=== PATIENT | female | born 1935 | race Hispanic/Latino ===

== ENCOUNTER 2017-10-19 16:02 | Inpatient (IN) | payer MEDICARE, OTHER ==
[2017-10-19] MEDS ORDERED: Piperacillin/Tazobact 3.375 gm 100 ML IVPB STA (16:25)
[2017-10-19] MEDS ORDERED: Vancomycin 1gm in NS 250ml 1 GM/250 ML BAG IVPB STA (16:26)
--- NOTE | 2017-10-19 16:41 | ED PDOC ---
Arrival/HPI - General Chief Complaint: Lower Extremity Problem/Injury Time Seen by Provider: 10/19/17 16:09 Historian: Patient - History of Present Illness Narrative History of Present Illness (Text): 10/19/17 16:37 A 82 year old female, whose past medical history includes hypertension and hyperlipidemia, sent into the emergency department by PMD for bilateral leg ulcers. Patient reports she has been taking Clindamycin with no improvement. PMD requests to start patient on IV antibiotics. Patient denies any pain, fever , chills or any other complaints. Past Medical History - Provider Review Nursing Documentation Reviewed: Yes - Infectious Disease Hx of Infectious Diseases: None - Tetanus Immunization Tetanus Immunization: Unknown - Reproductive Menopause: Yes - Cardiac Hx Cardiac Disorders: Yes - Pulmonary Hx Respiratory Disorders: No - Neurological Hx Neurological Disorder: Yes Hx Dizziness: Yes - HEENT Hx HEENT Disorder: Yes (WEARS RX GLASSES) Hx Macular Degeneration: Yes - Renal Hx Renal Disorder: No - Endocrine/Metabolic Hx Endocrine Disorders: No - Hematological/Oncological Hx Blood Disorders: No - Integumentary Hx Dermatological Disorder: No - Musculoskeletal/Rheumatological Hx Arthritis: Yes - Gastrointestinal Hx Gastrointestinal Disorders: Yes (COLOSTOMY WITH REVERSAL) - Genitourinary/Gynecological Hx Genitourinary Disorders: No (RIGHT LUMPECTOMY) - Psychiatric Hx Psychophysiologic Disorder: Yes (SMOKED CIGARETTES P A WEEK. QUIT) Hx Anxiety: Yes Hx Bipolar Disorder: No Hx Depression: No Hx Emotional Abuse: No Hx Hallucinations: No Hx Panic Disorder: No Hx Post Traumatic Stress Disorder: No Hx Psychosis: No Hx Physical Abuse: No Hx Schizophrenia: No Hx Sexual Abuse: No Hx Substance Use: No - Surgical History Hx Cholecystectomy: Yes Other/Comment: right lumpectomy, colostomy with reversal. - Anesthesia Hx Anesthesia: Yes Hx Anesthesia Reactions: No Hx Malignant Hyperthermia: No - Suicidal Assessment Feels Threatened In Home Enviroment: No Family/Social History - Physician Review Nursing Documentation Reviewed: Yes Family/Social History: No Known Family HX Smoking Status: Former Smoker Hx Alcohol Use: No Hx Substance Use: No Hx Substance Use Treatment: No Allergies/Home Meds Allergies/Adverse Reactions: Allergies Sulfa (Sulfonamide Antibiotics) Allergy (Verified 10/19/17 21:31) NAUSEA Home Medications: Home Meds Medication Instructions Recorded Confirmed Atorvastatin [Lipitor] 80 mg PO DAILY 03/20/12 10/19/17 Cholecalciferol [Vitamin D 1000 IU] 1,000 iu PO DAILY 01/07/15 10/19/17 Multivitamin/Iron/Folic Acid 1 tab PO DAILY 01/07/15 10/19/17 [Centrum] Alprazolam [Xanax] 0.5 mg PO DAILY 10/19/17 10/19/17 Calcium Citrate/Vitamin D3 1 each PO DAILY 10/19/17 10/19/17 [Calcium Citrate - Vit D3 Tab] Ibandronate Sodium [Boniva] 150 mg PO DAILY 10/19/17 10/19/17 Blair-3 Fatty Acids/Fish Oil [Fish 1,000 mg PO DAILY 10/19/17 10/19/17 Oil 1,000 mg Capsule] Review of Systems - Physician Review All systems were reviewed & negative as marked: Yes - Review of Systems Constitutional: absent: Fevers, Night Sweats Skin: Ulcer (bilateral leg ulcers) Physical Exam Vital Signs Temp Pulse Resp BP Pulse Ox 10/19/17 19:12 79 18 162/99 H 93 L 10/19/17 16:02 97.7 F 68 19 141/72 96 Appearance: Positive for: Well-Appearing, Non-Toxic, Comfortable Pain Distress: None Mental Status: Positive for: Alert and Oriented X 3 - Systems Exam Head: Present: Atraumatic, Normocephalic Pupils: Present: PERRL Extroacular Muscles: Present: EOMI Conjunctiva: Present: Normal Lower Extremity: Present: NORMAL PULSES, Other (Left greater than right leg ulcers, 2-3 cm in size with purulent drainage and black eschar). No: Edema, CALF TENDERNESS Neurological: Present: GCS=15, CN II-XII Intact, Speech Normal Skin: Present: Warm, Dry, Normal Color. No: Rashes Psychiatric: Present: Alert, Oriented x 3, Normal Insight, Normal Concentration Medical Decision Making ED Course and Treatment: 10/19/17 16:37 Impression: A 82 year old female with bilateral leg ulcers Plan: -- Duplex lower extremity ultrasound -- Left and Right Tibia fibula xrays -- Labs -- Blood culture -- Vancomycin and Zosyn -- Reassess and disposition Progress Notes: - Lab Interpretations Lab Results: 10/19/17 18:15 10/19/17 18:15 Lab Results 10/19/17 18:15: Sodium 138, Potassium 4.1, Chloride 101, Carbon Dioxide 30, Anion Gap 12, BUN 24 H, Creatinine 1.3 H, Est GFR ( Amer) 48, Est GFR ( Non-Af Amer) 39, Random Glucose 86, Calcium 10.1, Total Bilirubin 0.9, AST 29, ALT 39, Alkaline Phosphatase 75, Total Protein 7.6, Albumin 4.4, Globulin 3.2, Albumin/Globulin Ratio 1.4 10/19/17 18:15: PT 11.0, INR 1.01, APTT 31.7 10/19/17 18:15: WBC 9.3 D, RBC 4.90, Hgb 14.7, Hct 43.7, MCV 89.2, MCH 30.0, MCHC 33.6, RDW 15.0 H, Plt Count 274, MPV 11.9 H, Gran % 51.1, Lymph % (Auto) 36.7 H, Bay % (Auto) 8.7 H, Eos % (Auto) 2.6, Baso % (Auto) 0.9, Gran # 4.73, Lymph # 3.4, Bay # 0.8 H, Eos # 0.2, Baso # 0.08, ESR 15 I have reviewed the lab results: Yes - RAD Interpretation Radiology Orders: 10/19/17 16:25 TIBIA FIBULA BI [RAD] Stat DUPLEX LOWER EXTRM VEIN BILAT [US] Stat - Medication Orders Current Medication Orders: Acetaminophen (Tylenol 325mg Tab) 650 mg PO Q6H PRN PRN Reason: Fever >100.4 F Alprazolam (Xanax) 0.5 mg PO DAILY PRN PRN Reason: Anxiety Atorvastatin Calcium (Lipitor) 80 mg PO DIN ANA MARÍA Hydrochlorothiazide (Hydrodiuril) 25 mg PO DAILY ANA MARÍA Last Admin: 10/20/17 15:12 Dose: 25 mg Ceftaroline Fosamil 400 mg/ (Sodium Chloride) 100 mls @ 100 mls/hr IVPB Q12 ANA MARÍA PRN Reason: Protocol Stop: 10/29/17 10:01 Last Admin: 10/20/17 10:24 Dose: 100 mls/hr eMAR Start Stop Document 10/20/17 10:24 MV (Rec: 10/20/17 10:24 MV [id number]) Intravenous Solution Start Date 10/20/17 Start Time 10:24 End Date 10/20/17 End time 11:24 Total Infusion Time 60 Mupirocin (Bactroban Ointment) 0 gm TOP DAILY ANA MARÍA Tramadol HCl (Ultram) 50 mg PO QID PRN PRN Reason: Pain, Mild (1-3) Last Admin: 10/20/17 05:34 Dose: 50 mg [facility] Pain Assessment Document 10/20/17 05:34 LIBRADO (Rec: 10/20/17 05:35 LIBRADO [id number]) Pain Reassessment Is this a pain reassessment? Yes Sleep Is patient sleeping during reassessment? No Presence of Pain Presence of Pain Yes Pain Scale Used Pain Scale Used Numeric Location Left, Right or Bilateral Left Pain Location Body Site Leg Description Description Intermittent Intensity of Pain at present 7 Pain Behavior Facial Grimacing Aggravating Factors None Alleviating Factors/Management Medication Techniques Alleviating Factors Medication Re-Assess: [facility] Pain Assessment Document 10/20/17 06:34 LIBRADO (Rec: 10/20/17 06:37 LIBRADO [facility]-[id number]) Pain Reassessment Is this a pain reassessment? Yes Sleep Is patient sleeping during reassessment? No Presence of Pain Presence of Pain No Pain Scale Used Pain Scale Used Numeric Discontinued Medications Piperacillin Sod/Tazobactam Sod (Zosyn 3.375 In Ns 100ml) 100 mls @ 200 mls/hr IVPB STAT STA PRN Reason: Protocol Stop: 10/19/17 16:54 Last Admin: 10/19/17 18:00 Dose: 200 mls/hr eMAR Start Stop Document 10/19/17 18:00 SRE (Rec: 10/19/17 18:36 SRE [id number]) Intravenous Solution Start Date 10/19/17 Start Time 18:00 End Date 10/19/17 End time 19:00 Total Infusion Time 60 Vancomycin HCl (Vancomycin 1gm) 1 gm in 250 mls @ 167 mls/hr IVPB STAT STA PRN Reason: Protocol Stop: 10/19/17 17:55 Last Admin: 10/19/17 19:10 Dose: 167 mls/hr eMAR Start Stop Document 10/19/17 19:10 SRE (Rec: 10/19/17 19:11 SRE [id number]) Intravenous Solution Start Date 10/19/17 Start Time 19:11 End Date 10/19/17 End time 20:45 Total Infusion Time 94 Vancomycin HCl (Vancomycin 1gm) 1 gm in 250 mls @ 167 mls/hr IVPB Q12H ANA MARÍA PRN Reason: Protocol Last Admin: 10/19/17 20:15 Dose: Piperacillin Sod/Tazobactam Sod (Zosyn 3.375 In Ns 100ml) 100 mls @ 200 mls/hr IVPB Q8 ANA MARÍA PRN Reason: Protocol Stop: 10/20/17 14:01 Last Admin: 10/20/17 05:31 Dose: 200 mls/hr eMAR Start Stop Document 10/20/17 05:31 LIBRADO (Rec: 10/20/17 05:32 LIBRADO [id number]) Intravenous Solution Start Date 10/20/17 Start Time 05:31 End Date 10/20/17 End time 06:01 Total Infusion Time 30 Pneumococcal Polyvalent Vaccine (Pneumovax 23 Vaccine) 0.5 ml IM .ONCE ONE Stop: 10/19/17 23:38 Tramadol HCl (Ultram) 50 mg PO QID COUNT INCLUDES THE [facility] - Scribe Statement The provider has reviewed the documentation as recorded by the Aniket Sandoval Provider Scribe Attestation: All medical record entries made by the Estuardoiblawrence were at my direction and personally dictated by me. I have reviewed the chart and agree that the record accurately reflects my personal performance of the history, physical exam, medical decision making, and the department course for this patient. I have also personally directed, reviewed, and agree with the discharge instructions and disposition. Disposition/Present on Arrival - Present on Arrival Any Indicators Present on Arrival: No History of DVT/PE: No History of Uncontrolled Diabetes: No Urinary Catheter: No History of Decub. Ulcer: No History Surgical Site Infection Following: None - Disposition Have Diagnosis and Disposition been Completed?: Yes Diagnosis: Infected stasis ulcer of left lower extremity, Leg ulcer, Cellulitis Disposition: HOSPITALIZED Disposition Time: 06:00 Patient Problems: Current Active Problems Problem Status Onset Cellulitis Acute Infected stasis ulcer of left lower extremity Acute Leg ulcer Acute Condition: STABLE
--- NOTE | 2017-10-19 18:38 | US ---
HISTORY: Leg pain and swelling. Evaluate for DVT PHYSICIAN(S): Jeovanny Bo MD. TECHNIQUE: Duplex sonography and color-flow Doppler with graded compression were used to evaluate the deep venous systems of both lower extremities. FINDINGS: The visualized deep venous systems of both lower extremities are sonographically normal and compressible. Normal wave forms and augmentation are seen. There is no sonographic evidence for deep venous thrombosis in the visualized segments of both lower extremities. IMPRESSION: No sonographic evidence for deep venous thrombosis in the visualized segments of both lower extremities.
[2017-10-19 18:41] LABS: BASO # 0.08 K/mm3 (0.0-2.0); BASO % 0.9 % (0.0-3.0); EOS # 0.2 (0.0-0.7); EOS % 2.6 % (1.5-5.0); GRAN # 4.73 (1.4-6.5); GRAN % 51.1 % (50.0-68.0); HEMATOCRIT 43.7 % (36.0-48.0); LYMPH # 3.4 (1.2-3.4); LYMPH % 36.7 % (22.0-35.0); MEAN CELL VOLUME 89.2 fl (80.0-105.0); MEAN CORPUSCULAR HGB CONC 33.6 g/dl (31.0-37.0); MEAN PLATELET VOLUME 11.9 fl (7.0-11.0); MONO # 0.8 (0.1-0.6); MONO % 8.7 % (1.0-6.0); WHITE BLOOD COUNT 9.3 10^3/ul (4.5-11.0)
[2017-10-19 18:48] LABS: INR 1.01 (0.93-1.08); PARTIAL THROMBOPLASTIN TIME 31.7 Seconds (25.1-36.5)
[2017-10-19 18:53] LABS: ALB/GLOB RATIO 1.4 (1.1-1.8); BILIRUBIN,TOTAL 0.9 mg/dL (0.2-1.3); CALCIUM 10.1 mg/dL (8.4-10.5); POTASSIUM 4.1 mmol/L (3.6-5.0); TOTAL PROTEIN 7.6 g/dL (5.8-8.3)
[2017-10-19] MEDS ORDERED: Vancomycin 1gm in NS 250ml 1 GM/250 ML BAG IVPB SCH (20:00)
[2017-10-19] MEDS: Piperacillin/Tazobact 3.375 gm 100 ML IVPB SCH (22:01)
[2017-10-19 23:37] VITALS: BMI 22.7
[2017-10-19] MEDS ORDERED: Pneumococcal 23-Valent Vaccine IM ONE (23:37)
[2017-10-19] MEDS ORDERED: Influenza Vaccine 60 mcg/0.5 mL SYR (4YR UP) IM ONE (23:37)
[2017-10-20] MEDS: Piperacillin/Tazobact 3.375 gm 100 ML IVPB SCH (05:31)
--- NOTE | 2017-10-20 08:02 | RAD ---
PROCEDURE: Radiographs of the bilateral Tibiae and Fibulae. HISTORY: leg ulcer COMPARISON: None available. TECHNIQUE: Frontal and lateral views obtained. FINDINGS: BONES: RIGHT TIBIA: No fracture or destructive lesion. LEFT TIBIA: No fracture or destructive lesion. JOINT SPACES: RIGHT TIBIA: Normal. LEFT TIBIA: Normal. SOFT TISSUES: RIGHT TIBIA: Normal. LEFT TIBIA: Normal. OTHER FINDINGS: None. IMPRESSION: Unremarkable radiographs of the bilateral tibia and fibula.
--- NOTE | 2017-10-20 08:39 | HP ---
HISTORY OF PRESENT ILLNESS: The patient is an 82-year-old. The patient of Dr. Starkey who was seen by her today. She was seen a week ago. She has bilateral leg ulcer. She was given clindamycin. She states she went for followup, but there was no significant improvement, so she advised her to go to emergency room to have IV antibiotic given. No history of fever or chills. No history of nausea or vomiting. No history of diarrhea. No shortness of breath. No cough or congestion. PAST MEDICAL HISTORY: Significant for: 1. Hypertension. 2. Hyperlipidemia. 3. History of bilateral knee osteoarthritis. 4. Anxiety disorder. 5. History of macular degeneration. PAST SURGICAL HISTORY: Significant for: 1. Right breast lumpectomy. 2. Cholecystectomy. 3. History of colostomy who had reversal of colostomy done. ALLERGIES: SHE IS ALLERGIC TO SULFA MEDICATION THAT GIVES HER NAUSEA. SOCIAL HISTORY: She lives by herself. Denies smoking or drinking. She used to smoke earlier, but quit couple of years ago. MEDICATIONS AT HOME: She is on: 1. Tramadol 50 mg 4 times daily p.r.n. 2. Lipitor 80 mg daily. 3. Xanax 0.5 daily. 4. Multivitamins. 5. Centrum Silver. 6. Boniva. 7. Fish oil. 8. Vitamin D. REVIEW OF SYSTEMS: Significant for bilateral leg ulcer. PHYSICAL EXAMINATION: GENERAL: She is awake, alert, oriented, and communicative. VITAL SIGNS: She is afebrile, pulse 68, respirations 19, and blood pressure 141/72, and pulse ox 96%. HEENT: She has symmetrical face. Nonicteric sclerae. Pale conjunctivae. LUNGS: Bilateral good airflow. No rhonchi or crackle. HEART: S1 and S2 audible. No murmur. ABDOMEN: Soft and nontender. No rebound. No guarding. NEUROLOGIC: She is awake, alert, oriented, and able to communicate. EXTREMITIES: Bilateral leg ulcer present, which has slight erythema around. ASSESSMENT: 1. Bilateral leg ulcer, failed outpatient treatment. 2. Hypertension. 3. Hyperlipidemia. 4. Peripheral vascular disease. PLAN: We will start the patient on vancomycin and Zosyn. Followup CBC and CMP in a.m. ID consult by Dr. Calzada will be requested and will have local wound care by Dr. Pena. Radha Hendrickson MD
--- NOTE | 2017-10-20 12:04 | US ---
PROCEDURE: Lower extremity CORA exam HISTORY: Peripheral vascular disease with pain and ulceration. Smoker PHYSICIAN(S): Jeovanny Bo MD. FINDINGS: The resting CORA's are normal: right, 1.04and left, 0.99. The high thigh PVR waveforms are normal and symmetric The calf PVR waveforms augment normally. No significant gradients are noted across the thighs. The ankle and metatarsal waveforms are relatively normal and symmetric. There may be mild bilateral tibial disease IMPRESSION: 1. Normal ABIs at rest 2. Possible mild bilateral tibial disease
--- NOTE | 2017-10-20 17:08 | CP.PCM.CON ---
<Vinh Choi - Last Filed: 10/20/17 17:02> History of Present Illness - History of Present Illness History of Present Illness: Podiatry Consult Note - Dr. Pena 82 year old female patient seen and evaluated at bedside for bilateral leg wounds secondary to trauma. Patient hemodynamically stable and NAD. Patient states she developed the wound on her left leg from pulling down her compression hose, and developed the right wound after she hit her leg against furniture. Patient reports mild tenderness to the left leg wound; denies pain to right lower extremity. Patient states she was given medication from her PMD for the wounds but still have not improved, so was sent to [facility] ED. Patient denies N/V/F/D/C/SOB/calf pain. No other pedal complaints. PMHx: HTN, HLD, bilateral knee OA, anxiety, macular degeneration PSH: breast lumpectomy R, cholecystectomy, colostomy w/reversal FH: noncontributory to CC SH: former tobacco use, denies ETOH/illicit drug use All: sulfa Review of Systems - Review of Systems All systems: reviewed and no additional remarkable complaints except (as per HPI ) Past Patient History - Infectious Disease Hx of Infectious Diseases: None - Tetanus Immunizations Tetanus Immunization: Unknown - Past Social History Smoking Status: Former Smoker - CARDIAC Hx Cardiac Disorders: Yes Hx Hypercholesterolemia: Yes Hx Hypertension: Yes - PULMONARY Hx Respiratory Disorders: No - NEUROLOGICAL Hx Neurological Disorder: Yes Hx Dizziness: Yes - HEENT Hx HEENT Problems: Yes (WEARS RX GLASSES) Hx Macular Degeneration: Yes - RENAL Hx Chronic Kidney Disease: No - ENDOCRINE/METABOLIC Hx Endocrine Disorders: No - HEMATOLOGICAL/ONCOLOGICAL Hx Blood Disorders: No - INTEGUMENTARY Hx Dermatological Problems: No - MUSCULOSKELETAL/RHEUMATOLOGICAL Hx Arthritis: Yes - GASTROINTESTINAL Hx Gastrointestinal Disorders: Yes (COLOSTOMY WITH REVERSAL) - GENITOURINARY/GYNECOLOGICAL Hx Genitourinary Disorders: No (RIGHT LUMPECTOMY) - PSYCHIATRIC Hx Psychophysiologic Disorder: Yes (SMOKED CIGARETTES P A WEEK. QUIT) Hx Anxiety: Yes Hx Bipolar Disorder: No Hx Depression: No Hx Emotional Abuse: No Hx Hallucinations: No Hx Panic Symptoms: No Hx Post Traumatic Stress Disorder: No Hx Psychosis: No Hx Physical Abuse: No Hx Schizophrenia: No Hx Sexual Abuse: No Hx Substance Use: No - SURGICAL HISTORY Hx Cholecystectomy: Yes Other/Comment: right lumpectomy, colostomy with reversal. - ANESTHESIA Hx Anesthesia: Yes Hx Anesthesia Reactions: No Hx Malignant Hyperthermia: No Meds Allergies/Adverse Reactions: Allergies Allergy/AdvReac Type Severity Reaction Status Date / Time Sulfa (Sulfonamide Allergy NAUSEA Verified 10/23/17 22:37 Antibiotics) - Medications Medications: Current Medications Acetaminophen (Tylenol 325mg Tab) 650 mg PO Q6H PRN PRN Reason: Fever >100.4 F Alprazolam (Xanax) 0.5 mg PO DAILY PRN PRN Reason: Anxiety Atorvastatin Calcium (Lipitor) 80 mg PO DIN ANA MARÍA Hydrochlorothiazide (Hydrodiuril) 25 mg PO DAILY ANA MARÍA Last Admin: 10/20/17 15:12 Dose: 25 mg Ceftaroline Fosamil 400 mg/ (Sodium Chloride) 100 mls @ 100 mls/hr IVPB Q12 ANA MARÍA PRN Reason: Protocol Stop: 10/29/17 10:01 Last Admin: 10/20/17 10:24 Dose: 100 mls/hr Tramadol HCl (Ultram) 50 mg PO QID PRN PRN Reason: Pain, Mild (1-3) Last Admin: 10/20/17 05:34 Dose: 50 mg Physical Exam - Constitutional Appears: Well, Non-toxic, No Acute Distress - Extremities Exam Additional comments: VASC: DP and PT pulses weakly palpable 1/4 b/l. CFT <3 seconds to all digits x10. Temperature gradient cool to cool. Perimalleolar edema noted. No increase in warmth noted to ulcers b/l. Varicosities noted. NEURO: Gross sensation intact bilaterally. DERM: Ulcerations noted to anterior aspect of leg bilateral; erythema noted periwound, L>R; dried blood noted periwound; sanguinous drainage noted; absent purulence/fluctuance/malodor/calor. ORTHO: Tenderness to palpation noted to left leg ulceration. - Neurological Exam Neurological exam: Alert, Oriented x3 - Psychiatric Exam Psychiatric exam: Normal Affect, Normal Mood Results - Vital Signs Recent Vital Signs: Last Vital Signs Temp 97.6 F 10/20/17 06:00 Pulse 71 10/20/17 06:00 Resp 18 10/20/17 06:00 BP 124/69 10/20/17 06:00 Pulse Ox 99 10/19/17 20:37 - Labs Result Diagrams: 10/19/17 18:15 12/13/17 18:15 Labs: Laboratory Results - last 24 hr 10/20/17 10/20/17 08:35 08:35 ESR 22 H C-React Prot High Sens 1.58 Assessment & Plan - Assessment and Plan (Free Text) Assessment: 82 year old female with 1) non-healing leg ulcerations b/l secondary to trauma, 2) cellulitis left leg Plan: Patient seen and evaluated with attending, Dr. Pena afebrile, WBC 9.3 yesterday, ESR 22 today Ulcerations cleansed with normal saline and dressed with telfa, DSD -Peroxide and bactroban for dressing change tomorrow Continue abx - recs appreciated Pain mgmt per medicine Podiatry will continue to follow patient while in house <Maryellen Pena - Last Filed: 10/25/17 10:38> Results - Vital Signs Recent Vital Signs: Last Vital Signs Temp 98.2 F 10/23/17 08:07 Pulse 74 10/23/17 08:07 Resp 20 10/23/17 08:07 BP 118/54 L 10/23/17 09:54 Pulse Ox 98 10/23/17 08:07 - Labs Result Diagrams: 10/21/17 05:30 10/21/17 05:30 Attending/Attestation - Attestation I have personally seen and examined this patient.: Yes I have fully participated in the care of the patient.: Yes I have reviewed all pertinent clinical information: Yes
--- NOTE | 2017-10-20 18:31 | PN ---
DATE: SUBJECTIVE: The patient is 82-years old, seen and examined, lying in bed, seems to be comfortable, has bilateral leg dressing done. PHYSICAL EXAMINATION: GENERAL: She is awake and alert. VITAL SIGNS: She is afebrile, pulse is 71, respirations are 18, and blood pressure is 124/69. LUNGS: Bilateral good airflow. No rhonchi or crackles. HEART: S1 and S2 audible. ABDOMEN: Soft, nontender. No rebound. No guarding. NEUROLOGIC: She is awake, alert, oriented, and communicate. LABORATORY DATA: WBC is 9.3, hemoglobin is 14, hematocrit is 43, and platelets of 274. PT 11.0 and INR 1.01. Chemistries: Sodium of 138, potassium of 4.1, chloride of 101, CO2 of 30, BUN of 24, creatinine of 1.3, and blood sugar of 86. LFTs are within normal limits. Bilateral leg Doppler, normal ABIs and possible mild bilateral tibial disease. Bilateral venous Doppler negative for DVT. ASSESSMENT AND PLAN: 1. Bilateral leg cellulitis. 2. History of hypertension. 3. Chronic back pain. 4. History of osteoporosis. 5. Hyperlipidemia. PLAN: Currently, the patient is on Teflaro. Continue wound care. Out-of-bed to chair. The patient has failed outpatient treatment. I request for TCU evaluation to complete her course of antibiotic, and if she is accepted after 3 overnights, she will be transferred to TCU. Radha Hendrickson MD
--- NOTE | 2017-10-21 03:38 | CON ---
DATE: 10/20/2017 LOCATION: The patient is seen in room 368, bed 2. CHIEF COMPLAINT: Bilateral leg ulcers times several days. HISTORY OF PRESENT ILLNESS: This is an 82-year-old female with hypertension, hyperlipidemia, and arthritis who was admitted with diagnosis of infected leg ulcers and Infectious Disease consultation requested. REVIEW OF SYSTEMS: Revealed the patient had no fevers. No chills. No nausea or vomiting. No chest pain. No abdominal pain or diarrhea. PAST MEDICAL HISTORY: Hypertension, hyperlipidemia, and arthritis. PAST SURGICAL HISTORY: Reveals colostomy with reversal and cholecystectomy. ALLERGIES: THE PATIENT IS ALLERGIC TO SULFA. MEDICATIONS: Noted the patient to be on tramadol at home. The patient was also given a course of clindamycin for the treatment of lower extremity cellulitis and improving. SOCIAL HISTORY: The patient is a smoker. PHYSICAL EXAMINATION: GENERAL/VITAL SIGNS: The patient is seen in bed with a temperature of 97, heart rate of 88, respiratory rate of 18, and blood pressure of 140/80. HEENT: Unremarkable. NECK: Supple. LUNGS: Have decreased breath sounds. HEART: Normal S1 and S2. ABDOMEN: Soft and nontender. No organomegaly. No rebound. No guarding. EXTREMITIES: Examination of lower extremity reveals both legs have anterior aspect of her legs with ulcer and erythema around it. It appears actually trauma induced because they are both located in approximately the same location anteriorly in level dias in both legs and erythematous. LABORATORY DATA: Reveals a white count of 9.3, hemoglobin of 14, and platelets of 274. Chemistries reveal a BUN of 24 and creatinine of 1.3. The patient's creatinine in the past was 1.20. Microbiology is pending. The patient had an ultrasound of the extremity and arterial Dopplers, which showed possible mild bilateral tibial disease, normal Tomás at the bed. She had venous Dopplers, which shows negative DVT. ASSESSMENT AND PLAN: This is an 82-year-old female with hypertension, hyperlipidemia, and arthritis, who continues to be a smoker with bilateral lower extremity leg ulcers with cellulitis, probable trauma induced in phase of acute kidney injury mostly an underlying osteomyelitis. We will treat the patient with Teflaro and ordered a sed rate, which is now reported to be 22 and chemistries with C-reactive protein of 1.8, which is not elevated. We will check on the cultures. We will discontinue the vancomycin-induced Teflaro because of the renal impaired function and we are unable to use Zyvox because of the tramadol and will make further recommendations, pending culture results and response. Should have imaging to rule out underlying osteomyelitis. Carter Calzada MD
[2017-10-21 06:35] LABS: MEAN CELL VOLUME 87.8 fl (80.0-105.0); MEAN CORPUSCULAR HEMOGLOBIN 28.8 pg (25.0-35.0); MEAN CORPUSCULAR HGB CONC 32.8 g/dl (31.0-37.0); MEAN PLATELET VOLUME 11.9 fl (7.0-11.0); RED CELL DISTRIBUTION WIDTH 14.9 % (11.5-14.5); WHITE BLOOD COUNT 6.1 10^3/ul (4.5-11.0)
[2017-10-21 06:57] LABS: ALB/GLOB RATIO 1.3 (1.1-1.8); BILIRUBIN,TOTAL 0.7 mg/dL (0.2-1.3); CALCIUM 9.4 mg/dL (8.4-10.5); POTASSIUM 3.6 mmol/L (3.6-5.0); TOTAL PROTEIN 6.2 g/dL (5.8-8.3)
--- NOTE | 2017-10-21 14:29 | CP.PCM.PN ---
<Vinh Choi - Last Filed: 10/21/17 14:25> Subjective - Date & Time of Evaluation Date of Evaluation: 10/21/17 Time of Evaluation: 14:25 - Subjective Subjective: Podiatry Consult Note - Dr. Pena/Dylan 82 year old female patient seen and evaluated at bedside for bilateral leg wounds secondary to trauma. Patient hemodynamically stable and NAD. Denies any acute events overnight. Reports mild tenderness to left leg wound, well controlled. No other pedal complaints. Denies N/V/F/D/C/SOB/calf pain. Objective - Vital Signs/Intake and Output Vital Signs (last 24 hours): Temp Pulse Resp BP Pulse Ox 97.8 F 67 22 150/75 91 L 10/21/17 06:00 10/21/17 06:00 10/21/17 06:00 10/21/17 06:00 10/21/17 06:00 Intake and Output: 10/21/17 10/21/17 06:59 18:59 Intake Total 820 480 Balance 820 480 - Medications Medications: Current Medications Acetaminophen (Tylenol 325mg Tab) 650 mg PO Q6H PRN PRN Reason: Fever >100.4 F Alprazolam (Xanax) 0.5 mg PO DAILY PRN PRN Reason: Anxiety Last Admin: 10/21/17 11:10 Dose: 0.5 mg Atorvastatin Calcium (Lipitor) 80 mg PO DIN ANA MARÍA Hydrochlorothiazide (Hydrodiuril) 25 mg PO DAILY [facility] Last Admin: 10/21/17 09:45 Dose: 25 mg Ceftaroline Fosamil 400 mg/ (Sodium Chloride) 100 mls @ 100 mls/hr IVPB Q12 ANA MARÍA PRN Reason: Protocol Stop: 10/29/17 10:01 Last Admin: 10/21/17 09:42 Dose: 100 mls/hr Mupirocin (Bactroban Ointment) 0 gm TOP DAILY ANA [facility]A Last Admin: 10/21/17 09:45 Dose: Not Given Tramadol HCl (Ultram) 50 mg PO QID PRN PRN Reason: Pain, Mild (1-3) Last Admin: 10/20/17 05:34 Dose: 50 mg - Labs Labs: 10/21/17 05:30 10/21/17 05:30 PT 11.0 SECONDS (9.4-12.5) 10/19/17 18:15 INR 1.01 (0.93-1.08) 10/19/17 18:15 APTT 31.7 Seconds (25.1-36.5) 10/19/17 18:15 - Constitutional Appears: Well, Non-toxic, No Acute Distress - Extremities Exam Additional comments: VASC: DP and PT pulses weakly palpable 1/4 b/l. CFT <3 seconds to all digits x10. Temperature gradient cool to cool. No edema noted this visit. No increase in warmth noted to ulcers b/l. Varicosities noted. NEURO: Gross sensation intact bilaterally. DERM: Ulcerations noted to anterior aspect of leg bilateral - ulceration #1 to right leg measuring approximately 2 x 1.5 x 0.1 cm and ulceration #2 to left leg measuring approximately 4 x 2 x 0.1 cm; both ulcers are noted to have a 100 % granular base with epithelialization; erythema noted periwound, L>R; no drainage noted; absent purulence/fluctuance/malodor/calor. ORTHO: Mild tenderness to palpation noted to left leg ulceration. - Neurological Exam Neurological Exam: Alert, Awake, Oriented x3 - Psychiatric Exam Psychiatric exam: Anxious, Normal Mood Assessment and Plan - Assessment and Plan (Free Text) Assessment: 82 year old female with 1) traumatic leg ulcerations b/l, 2) cellulitis left leg Plan: Patient seen and evaluated Discussed with attending, Dr. Richardson afebrile, WBC 6.1, ESR 22 Ulcerations cleansed with hydrogen peroxide, bactroban applied to wound beds, and dressed with telfa, DSD -Continue with local wound care f/u wound culture Continue abx - Ceftaroline Pain mgmt per medicine Continue PT Advised patient to follow up in wound care center within 1 week of discharge Podiatry will continue to follow patient while in house <Ronald Richardson - Last Filed: 10/21/17 19:13> Objective - Vital Signs/Intake and Output Vital Signs (last 24 hours): Temp Pulse Resp BP Pulse Ox 99 F 72 20 158/74 H 94 L 10/21/17 16:00 10/21/17 16:00 10/21/17 16:00 10/21/17 16:00 10/21/17 16:00 Intake and Output: 10/21/17 10/22/17 18:59 06:59 Intake Total 480 Balance 480 - Medications Medications: Current Medications Acetaminophen (Tylenol 325mg Tab) 650 mg PO Q6H PRN PRN Reason: Fever >100.4 F Alprazolam (Xanax) 0.5 mg PO DAILY PRN PRN Reason: Anxiety Last Admin: 10/21/17 11:10 Dose: 0.5 mg Atorvastatin Calcium (Lipitor) 80 mg PO DIN [facility] Last Admin: 10/21/17 17:30 Dose: 80 mg Bacitracin (Bacitracin) 1 ea TOP BID PRN PRN Reason: Other Hydrochlorothiazide (Hydrodiuril) 25 mg PO DAILY [facility] [place] Last Admin: 10/21/17 09:45 Dose: 25 mg Ceftaroline Fosamil 400 mg/ (Sodium Chloride) 100 mls @ 100 mls/hr IVPB Q12 ANA MARÍA PRN Reason: Protocol Stop: 10/29/17 10:01 Last Admin: 10/21/17 09:42 Dose: 100 mls/hr Lisinopril (Zestril) 10 mg PO DAILY [facility] [place] Last Admin: 10/21/17 17:33 Dose: 10 mg Mupirocin (Bactroban Ointment) 0 gm TOP DAILY [facility] [place] Last Admin: 10/21/17 09:45 Dose: Not Given Tramadol HCl (Ultram) 50 mg PO QID PRN PRN Reason: Pain, Mild (1-3) Last Admin: 10/20/17 05:34 Dose: 50 mg - Labs Labs: 10/21/17 05:30 10/21/17 05:30 PT 11.0 SECONDS (9.4-12.5) 10/19/17 18:15 INR 1.01 (0.93-1.08) 10/19/17 18:15 APTT 31.7 Seconds (25.1-36.5) 10/19/17 18:15 Attending/Attestation - Attestation I have personally seen and examined this patient.: Yes I have fully participated in the care of the patient.: Yes I have reviewed all pertinent clinical information, including history, physical exam and plan: Yes
--- NOTE | 2017-10-21 14:49 | PN ---
DATE: 10/21/2017 SUBJECTIVE: The patient is in bed, in no acute distress. OBJECTIVE: VITAL SIGNS: On exam, temperature is 97, blood pressure is 150/70, respiratory rate of 16. HEENT: Examination of HEENT is unremarkable. NECK: Supple. LUNGS: Decreased breath sounds. HEART: Normal S1 and S2. ABDOMEN: Soft. LABORATORY EXAMINATION: Reveals a white count of 6.1, hemoglobin of 12, and a sed rate of 22. The chemistries reveal a BUN of 15, creatinine of 1.5. Microbiology is noted and blood cultures show no growth, and lower extremities have improved. ASSESSMENT AND PLAN: This is an 82-year-old female with hypertension, hyperlipidemia, arthritis, smoker, bilateral lower extremity leg ulcers, and cellulitis with acute kidney injury, currently on Teflaro. We will check on the culture results. Wound culture is pending. We will follow closely with you. Must rule out underlying osteomyelitis, should have imaging. Carter Calzada MD
--- NOTE | 2017-10-21 19:49 | PN ---
DATE: SUBJECTIVE: The patient is 82-year-old, seen and examined, doing well. Eating and tolerating. PHYSICAL EXAMINATION: VITAL SIGNS: She is afebrile, pulse 67, respirations 20, and blood pressure 84, was given Norvasc 10 mg now it is 150/75. GENERAL: She is awake, alert, oriented, and communicative. LUNGS: Bilateral good airflow. No rhonchi or crackles. HEART: S1 and S2 audible. ABDOMEN: Soft, nontender. No rebound. No guarding. NEUROLOGIC: She is awake, alert, oriented, communicative, and ambulatory. Bilateral españa, she has stage II ulcer with surrounding erythema. LABORATORY DATA: WBC 6.1, hemoglobin 12.8, hematocrit 39, and platelets of 217. Chemistry: Sodium of 135, potassium 3.6, chloride 104, CO2 of 28, BUN 15, creatinine 1.2, and blood sugar of 43. Her blood cultures are negative. Her wound cultures are pending. ASSESSMENT: 1. Bilateral españa ulcer with cellulitis. 2. Hypertension. 3. Hyperlipidemia. PLAN: We will start the patient on lisinopril. I will continue her on Teflaro. Local wound care being done by Dr. Pena. We will discontinue her telemetry. She is a good candidate for TCU for physical therapy, wound care, and IV antibiotics. Radha Hendrickson MD
[2017-10-21] MEDS: Bacitracin 500 Units/gm Oint Foilpak UD TOP PRN (22:37)
[2017-10-22] MEDS: Bacitracin 500 Units/gm Oint Foilpak UD TOP PRN (09:42)
--- NOTE | 2017-10-22 11:37 | CP.PCM.PN ---
<Sera Calvert - Last Filed: 10/22/17 11:34> Subjective - Date & Time of Evaluation Date of Evaluation: 10/22/17 Time of Evaluation: 10:10 - Subjective Subjective: Podiatry Progress Note- Dr. Richardson 82 year old female patient seen at bedside this morning for b/l anterior leg ulcerations. Pt does complain of mild tenderness to the wounds of both legs, denies any pain or discomfort to any other areas of both lower extremities. Denies f/n/v/c/sob/cp/weakness or dizziness, does complain of some loose stools since starting the IV antibiotics however. Offers no other complaints. Objective - Vital Signs/Intake and Output Vital Signs (last 24 hours): Temp Pulse Resp BP Pulse Ox 97.6 F 61 18 106/55 L 94 L 10/22/17 08:12 10/22/17 09:43 10/22/17 08:12 10/22/17 09:43 10/22/17 08:12 Intake and Output: 10/22/17 10/22/17 06:59 18:59 Intake Total 660 0 Balance 660 0 - Medications Medications: Current Medications Acetaminophen (Tylenol 325mg Tab) 650 mg PO Q6H PRN PRN Reason: Fever >100.4 F Alprazolam (Xanax) 0.5 mg PO DAILY PRN PRN Reason: Anxiety Last Admin: 10/21/17 11:10 Dose: 0.5 mg Atorvastatin Calcium (Lipitor) 80 mg PO DIN [facility] Last Admin: 10/21/17 17:30 Dose: 80 mg Bacitracin (Bacitracin) 1 ea TOP BID PRN PRN Reason: Other Last Admin: 10/22/17 09:42 Dose: 1 ea Hydrochlorothiazide (Hydrodiuril) 25 mg PO DAILY [facility] Last Admin: 10/22/17 09:43 Dose: 25 mg Lisinopril (Zestril) 10 mg PO DAILY [facility] Last Admin: 10/22/17 09:43 Dose: Not Given Mupirocin (Bactroban Ointment) 0 gm TOP DAILY [facility] Last Admin: 10/22/17 09:51 Dose: Not Given Tramadol HCl (Ultram) 50 mg PO QID PRN PRN Reason: Pain, Mild (1-3) Last Admin: 10/20/17 05:34 Dose: 50 mg - Labs Labs: 10/21/17 05:30 10/21/17 05:30 PT 11.0 SECONDS (9.4-12.5) 10/19/17 18:15 INR 1.01 (0.93-1.08) 10/19/17 18:15 APTT 31.7 Seconds (25.1-36.5) 10/19/17 18:15 - Constitutional Appears: Non-toxic, No Acute Distress - Extremities Exam Additional comments: Dressings to b/l LE appear c/d/i VASC: DP and PT pulses weakly palpable 1/4 b/l. CFT <3 seconds to all digits x10. Temperature gradient cool to cool. Perimalleolar edema noted. No increase in warmth noted to ulcers b/l. Varicosities noted. NEURO: Gross sensation intact bilaterally. DERM: Ulcerations noted to anterior aspect of leg bilateral; both wounds appear granular with no active drainage, absent purulence/fluctuance/malodor/calor. ORTHO: Tenderness to palpation noted to left leg ulceration. - Psychiatric Exam Psychiatric exam: Anxious, Normal Mood Assessment and Plan - Assessment and Plan (Free Text) Assessment: 82 year old female with 1) non-healing leg ulcerations b/l secondary to trauma, 2) cellulitis left leg Plan: Patient S&E at bedside Plan discussed with attending Dr. Richardson Chart, labs vitals reviewed: afebrile, no leukocytosis, ESR 22 LE wound cx's pending Ulcerations cleansed with normal saline, dressed with bactroban, telfa, DSD Antibiotics discontinued Pain mgmt per medicine Stable per podiatry Plan for pt to go to [facility] today, will follow <Ronald Richardson - Last Filed: 10/26/17 08:12> Objective - Vital Signs/Intake and Output Vital Signs (last 24 hours): Temp Pulse Resp BP Pulse Ox 98.2 F 74 20 118/54 L 98 10/23/17 08:07 10/23/17 08:07 10/23/17 08:07 10/23/17 09:54 10/23/17 08:07 - Labs Labs: 10/21/17 05:30 10/21/17 05:30 PT 11.0 SECONDS (9.4-12.5) 10/19/17 18:15 INR 1.01 (0.93-1.08) 10/19/17 18:15 APTT 31.7 Seconds (25.1-36.5) 10/19/17 18:15 Attending/Attestation - Attestation I have personally seen and examined this patient.: Yes I have fully participated in the care of the patient.: Yes I have reviewed all pertinent clinical information, including history, physical exam and plan: Yes
--- NOTE | 2017-10-23 00:55 | PN ---
DATE: SUBJECTIVE: The patent is an 82-year-old seem to be very confused and disoriented and worried. Offered no complaints except states I am worried that I am going to go home. Initially she was refusing to go to TCU, but when it was explained to her that she need wound care, physical therapy, she agreed. PHYSICAL EXAMINATION: GENERAL: She is awake, alert, oriented and communicative. VITAL SIGNS: She is afebrile, pulse 61, respirations 18 and blood pressure 106/55. LUNGS: Bilateral fair airflow. No rhonchi or crackle. HEART; S1 and S2 audible. ABDOMEN: Soft and nontender. No rebound. No guarding. NEUROLOGIC: She is awake, alert, oriented and forgetful. Bilateral leg españa. She has erythema with stage II ulcers. LABORATORY DATA: WBC 6.1, hemoglobin 12.8, hemoglobin 39 and platelet 217. Chemistry: Sodium 135, potassium 3.6, chloride 104, carbon dioxide 28, BUN 15, creatinine 1.2 and blood sugar of 87. Her blood cultures are negative. Her wound is growing Gram-negative rods, sensitivity to follow. ASSESSMENT AND PLAN: 1. Bilateral españa ulcers, failed outpatient treatment. Bilateral leg ulcer, we will start the patient on Rocephin, awaiting Transitional Care Unit transfer where she will get complete her course of antibiotics and get wound care and physical therapy. The patient is awaiting Transitional Care Unit transfer once the bed is available. She will be transferred to Transitional Care Unit. 2. Hypertension. 3. Dementia. 4. Mild renal insufficiency. Radha Hendrickson MD
--- NOTE | 2017-10-23 01:52 | PN ---
DATE: 10/22/2017 SUBJECTIVE: Patient in bed in no acute distress. Nontoxic. No fevers. No chills. No nausea. PHYSICAL EXAMINATION: GENERAL: Temperature is 97, blood pressure is 100/70, respiratory rate of 20, heart rate of 72. HEENT: Unremarkable. NECK: Supple. LUNGS: Have decreased breath sounds. HEART: Normal S1 and S2. ABDOMEN: Soft. LABORATORY DATA: Reveals a white count of 6.1, hemoglobin of 12, and platelets of 217. BUN of 15 and creatinine of 1.2. Microbiology reveals the leg culture is noted as gram-negative stephenie. MEDICATIONS: Revealed the patient to be on ceftriaxone. The patient was on ceftaroline. Dr. Hendrickson's note from yesterday is reviewed. Dr. Sera Calvert's note is reviewed. ASSESSMENT AND PLAN: This is an 82-year-old with bilateral españa ulcers and cellulitis, which have been greatly improved with gram-negative stephenie, hypertension, hyperlipidemia. We will check on the identification of gram-negative stephenie. The patient has refused ceftaroline, currently on ceftriaxone and we will review. Carter Calzada MD
[2017-10-23 08:07] VITALS: BP 118/54; PULSE 74; RESP 20; TEMP 98.2; O2SAT 98
[2017-10-23] MEDS ORDERED: cefTRIAXone 1 gm 1 GM/100 ML BAG IVPB SCH (10:00)
--- NOTE | 2017-10-23 11:04 | CP.PCM.PN ---
Subjective - Date & Time of Evaluation Date of Evaluation: 10/23/17 Time of Evaluation: 10:00 - Subjective Subjective: Podiatry Progress Note- Dr. Pena 82 year old female patient seen at bedside this morning for b/l anterior leg ulcerations. Pt is seen resting comfortably in bed at time of visit. Denies any acute overnight events. Denies any lucía pain to b/l lower extremities but does complain of some occasional tenderness to the left leg wound. Denies f/n/v/c/sob /cp/weakness or dizziness at this time. No other complaints at this time. Objective - Vital Signs/Intake and Output Vital Signs (last 24 hours): Temp Pulse Resp BP Pulse Ox 98.2 F 74 20 118/54 L 98 10/23/17 08:07 10/23/17 08:07 10/23/17 08:07 10/23/17 09:54 10/23/17 08:07 Intake and Output: 10/23/17 10/23/17 06:59 18:59 Intake Total 120 Balance 120 - Medications Medications: Current Medications Acetaminophen (Tylenol 325mg Tab) 650 mg PO Q6H PRN PRN Reason: Fever >100.4 F Alprazolam (Xanax) 0.5 mg PO DAILY PRN PRN Reason: Anxiety Last Admin: 10/22/17 11:51 Dose: 0.5 mg Atorvastatin Calcium (Lipitor) 80 mg PO DIN [facility] Last Admin: 10/22/17 17:02 Dose: 80 mg Bacitracin (Bacitracin) 1 ea TOP BID PRN PRN Reason: Other Last Admin: 10/22/17 09:42 Dose: 1 ea Hydrochlorothiazide (Hydrodiuril) 25 mg PO DAILY [facility] Last Admin: 10/23/17 09:53 Dose: 25 mg Ceftriaxone Sodium (Rocephin 1 Gram Ivpb) 1 gm in 100 mls @ 100 mls/hr IVPB DAILY ANA MARÍA PRN Reason: Protocol Last Admin: 10/23/17 09:56 Dose: 100 mls/hr Lisinopril (Zestril) 10 mg PO DAILY [facility] Last Admin: 10/23/17 09:54 Dose: 10 mg Mupirocin (Bactroban Ointment) 0 gm TOP DAILY [facility] Last Admin: 10/23/17 09:56 Dose: Not Given Tramadol HCl (Ultram) 50 mg PO QID PRN PRN Reason: Pain, Mild (1-3) Last Admin: 10/20/17 05:34 Dose: 50 mg - Labs Labs: 10/21/17 05:30 10/21/17 05:30 PT 11.0 SECONDS (9.4-12.5) 10/19/17 18:15 INR 1.01 (0.93-1.08) 10/19/17 18:15 APTT 31.7 Seconds (25.1-36.5) 10/19/17 18:15 - Constitutional Appears: Non-toxic, No Acute Distress - Extremities Exam Additional comments: Dressings to b/l LE appear c/d/i VASC: DP and PT pulses weakly palpable 1/4 b/l. CFT <3 seconds to all digits x10. Temperature gradient cool to cool. decreased edema bl, No increase in warmth noted to ulcers b/l. Varicosities noted. NEURO: Gross sensation intact bilaterally. DERM: Ulcerations noted to anterior aspect of leg bilateral; both wounds appear granular with no active drainage, absent purulence/fluctuance/malodor/calor. ORTHO: slight tenderness to palpation noted to left leg ulceration. - Neurological Exam Neurological Exam: Alert, Awake, Oriented x3 - Psychiatric Exam Psychiatric exam: Normal Affect, Normal Mood Assessment and Plan - Assessment and Plan (Free Text) Assessment: 82 year old female with 1) non-healing leg ulcerations b/l secondary to trauma Plan: Patient S&E at bedside Plan discussed with attending Dr. Pena Chart, labs vitals reviewed: afebrile, no leukocytosis, ESR 22, CRP 1.58 Left leg wound cx: + enterobacter heavy growth Abx as per ID (switched to rocephin) B/L leg ulcerations cleansed with normal saline, dressed with bactroban, telfa, DSD Pain mgmt per medicine Stable per podiatry Plan for pt to go to [facility] today, will follow
--- NOTE | 2017-10-23 11:31 | PN ---
DATE: 10/23/2017 SUBJECTIVE: The patient is in bed in no acute distress, nontoxic. She states she wants to go home. She does want to any antibiotics. PHYSICAL EXAMINATION: VITAL SIGNS: Temperature is 98, blood pressure is 118/50, and respiratory rate of 16. HEENT: Unremarkable. NECK: Supple. LUNGS: Have decreased breath sounds. HEART: Normal S1 and S2. ABDOMEN: Soft and nontender. EXTREMITIES: Examination of the legs reveal that the legs have much improved and the lesions are drying up. LABORATORY EXAMINATION: Reveals the patient's white count of 6.1. Sedimentation rate is 22. Coagulation is noted. Chemistries are noted. Creatinine is 1.3. Microbiology reveals Enterobacter cloacae species that is sensitive to ceftriaxone and review of orders reveals the patient to be on ceftriaxone. ASSESSMENT AND PLAN: This is an 82-year-old female with bilateral chin ulcers and cellulitis, which is resolved with history of hypertension and hyperlipidemia with Enterobacter cloacae that is sensitive ceftriaxone, may be able to switch to cefpodoxime, which is Vantin at 200 mg p.o. b.i.d. and the x-rays are not indicative of an osteomyelitis and we will discuss with you. Dr. Hendrickson's note from yesterday is reviewed. Carter Calzada MD
--- NOTE | 2017-10-24 12:21 | DS ---
HISTORY OF PRESENT ILLNESS: The patient is an 82-year-old, seen and examined, sitting in chair, seems to be comfortable, son by the bedside, not in any distress, eating and tolerating. PHYSICAL EXAMINATION: VITAL SIGNS: She is afebrile. Pulse 74, respirations 20, blood pressure 118/54. LUNGS: Bilateral good airflow. No rhonchi or crackle. HEART: S1,S2 audible. ABDOMEN: Soft, nontender. No rebound. No guarding. NEUROLOGIC: The patient is awake, alert, oriented. Confused at times. EXTREMITIES: Bilateral legs healing españa ulcers with slight erythema. ASSESSMENT AND PLAN: 1. Bilateral leg ulcers, failed outpatient treatment. 2. Confusion and dementia. 3. Hypertension. 4. Hyperlipidemia. 5. Anxiety disorder. 6. Electrolyte imbalance. So, plan is the patient will be transferred to TCU today where we will continue her wound care and we will continue her antibiotic. Radha Hendrickson MD
--- NOTE | 2017-10-25 22:33 | PN ---
DATE: 10/25/2017 SUBJECTIVE: The patient is seen at bedside for bilateral skin tears. The patient states that she is feeling better since she has been in the hospital and the main reason for coming to the hospital was her leg. The patient is seen resting with her dressings clean, dry, and intact. ALLERGIES: THE PATIENT HAS DRUG ALLERGY TO SULFA. PHYSICAL EXAMINATION: VITAL SIGNS: Reviewed. Her temperature is 98, her blood pressure is 124/62 and the oxygen is 88 via nasal cannula. EXTREMITIES: The patient's lower extremities were reviewed. Arterial Doppler were also reviewed and they are both lower extremities are within normal limits of ABIs of 1 and 0.99 respectively right/left. Although, PVR waveforms were grossly within normal limits. The patient's wounds are improved. There is a stage III skin tear on both legs on the anterior españa. There is no cellulitis at this time and the tissue is granula, the right leg is filling in and the left leg is 100% granula, neither one of these have any sinus track, there is no undermining, there is no pus. There is drawing in machine tender helper to palpation and the patient's skin is very thin and frail. LABORATORY DATA: The patient's labs were reviewed. The last hematology was done on 10/21/2017 with the white blood cell count of 6.1. The patient's microbiology was noted to have Enterobacter cloacae species in her wound and she is presently on Vantin for that. MEDICATIONS: The patient's medications are noted on the MAR. We have been putting bacitracin topically to her legs. ASSESSMENT AND PLAN: Stage III skin tears bilateral legs. Plan of treatment, I discontinued the heavy dressings and we started Optifoam. We did use skin prep on her skin before applying adhesive and she will be seen and followed in the morning. Maryellen Pena DPM
== END 2017-10-23 14:38 | DRG 593 ==
LOC: ED 16:02 → ERH 18:54 → 3RNO 20:55
PROVIDERS: ADMIT Internal Medicine; ATTEND Internal Medicine
DX: L97.919 Non-pressure chronic ulcer of unspecified part of right lower leg with unspecified severity (principal); L03.115 Cellulitis of right lower limb; L03.116 Cellulitis of left lower limb; N17.9 Acute kidney failure, unspecified; L97.929 Non-pressure chronic ulcer of unspecified part of left lower leg with unspecified severity; B96.89 Other specified bacterial agents as the cause of diseases classified elsewhere; F03.90 Unspecified dementia, unspecified severity, without behavioral disturbance, psychotic disturbance, mood disturbance, and anxiety; E87.8 Other disorders of electrolyte and fluid balance, not elsewhere classified; M17.0 Bilateral primary osteoarthritis of knee; E78.5 Hyperlipidemia, unspecified; I10 Essential (primary) hypertension; F41.9 Anxiety disorder, unspecified; I73.9 Peripheral vascular disease, unspecified; H35.30 Unspecified macular degeneration; F17.200 Nicotine dependence, unspecified, uncomplicated; M81.0 Age-related osteoporosis without current pathological fracture; Z93.3 Colostomy status; Z88.2 Allergy status to sulfonamides

== ENCOUNTER 2017-10-23 14:40 | Inpatient (IN) | payer OTHER ==
[2017-10-23] MEDS ORDERED: Bacitracin 500 Units/gm Oint Foilpak UD TOP PRN (14:54)
[2017-10-23 17:18] VITALS: BMI 17.7
[2017-10-24] MEDS: cefTRIAXone 1 gm 1 GM/100 ML BAG IVPB SCH ×2 (05:36→12:32)
[2017-10-24] MEDS: Cefpodoxime (Vantin) 200 mg Tab PO SCH (21:30)
--- NOTE | 2017-10-25 04:45 | HP ---
HISTORY OF PRESENT ILLNESS: The patient is 82 years old, seen and examined. The patient was initially being treated by Dr. Starkey as an outpatient with oral clindamycin with no significant relief, so she was sent to emergency room for further evaluation. The patient had arterial and venous Doppler, both are negative, being treated with IV antibiotic and local wound care. PAST MEDICAL HISTORY: She has significant past medical history for, 1. Hypertension. 2. Anxiety disorder. 3. Mild dementia. 4. History of bilateral knee osteoarthritis. 5. History of macular degeneration. PAST SURGICAL HISTORY: Significant for, 1. Right breast lumpectomy. 2. Cholecystectomy. 3. Colostomy, but had reversal of colostomy done. ALLERGIES: SHE IS ALLERGIC TO SULFA MEDICATION THAT CAUSES NAUSEA. SOCIAL HISTORY: She lives by herself. She has a sister who is older than her. She takes care of her. She has niece and son around. MEDICATIONS AT HOME: She is on vitamin D, she is on fish oil, Boniva, Centrum Silver, multivitamin, Xanax 0.5 t.i.d., Lipitor 80 mg daily, and tramadol 50 mg q. 6 p.r.n. REVIEW OF SYSTEMS: Significant for generalized weakness, significant for bilateral españa ulcers. PHYSICAL EXAMINATION GENERAL: She is awake, alert, oriented, communicative. VITAL SIGNS: She is afebrile, pulse 69, respirations 17, blood pressure 91/46. LUNGS: Bilaterally good airflow. No rhonchi or crackles. HEART: S1 and S2 audible. No murmur. ABDOMEN: Soft. Nontender. No rebound or guarding. NEUROLOGIC: The patient is awake, alert, oriented, able to communicate, ambulatory. EXTREMITIES: Bilateral shins, she has healing stage II ulcers. PLAN: We will continue the patient on current medication. We will give her p.o. Vantin and we will get local wound care. Encourage physical therapy. We will follow the patient. Radha Hendrickson MD
[2017-10-25] MEDS: Cefpodoxime (Vantin) 200 mg Tab PO SCH ×2 (10:34→20:59)
--- NOTE | 2017-10-25 21:10 | PN ---
DATE: HISTORY OF PRESENT ILLNESS: The patient is an 82-year-old, seen and examined, sitting in chair, very anxious. She states nobody changed her dressing today. Waiting for Dr. Pena's visit. PHYSICAL EXAMINATION: VITAL SIGNS: She is afebrile. Pulse 70, respirations 16, blood pressure 124/62. LUNGS: Bilateral fair airflow. No rhonchi or crackle. HEART: S1,S2 audible. ABDOMEN: Soft, nontender. No rebound. No guarding. NEUROLOGIC: The patient is awake, alert, oriented. Able to communicate and ambulatory. EXTREMITIES: Bilateral españa has stage II ulcer. ASSESSMENT: 1. Bilateral españa ulcer. 2. Hypertension. 3. Anxiety disorder. 4. Hyperlipidemia. PLAN: We will continue local wound care. She is currently on p.o. Vantin. We will continue that and encourage ambulation. Follow up in a.m. Radha Hendrickson MD
[2017-10-26] MEDS: Cefpodoxime (Vantin) 200 mg Tab PO SCH ×2 (10:24→21:58)
--- NOTE | 2017-10-26 11:08 | CP.PCM.CON ---
History of Present Illness - History of Present Illness History of Present Illness: Podiatry Consult Note- Dr. Pena 82 y.o female seen in [facility] for bilaterally leg wounds secondary to trauma. Patient is seen resting comfortably in bed, in NAD, and AA0x3. Patient denies acute overnight events. Patient reports same tender pain to the lower extremity. She reports the tenderness being localized to the ulcerations. She denies nausea, fever, vomitting, shortness of breath, chest pain and chills. She has no other pedal complaints at this time. PMHx: HTN, HLD, bilateral knee OA, anxiety, macular degeneration PSH: breast lumpectomy R, cholecystectomy, colostomy w/reversal FH: noncontributory to CC SH: former tobacco use, denies ETOH/illicit drug use All: sulfa Past Patient History - Infectious Disease Hx of Infectious Diseases: None - Tetanus Immunizations Tetanus Immunization: Unknown - Past Social History Smoking Status: Former Smoker - CARDIAC Hx Hypertension: Yes - PULMONARY Hx Respiratory Disorders: No - NEUROLOGICAL Hx Neurological Disorder: Yes Hx Dizziness: Yes - HEENT Hx HEENT Problems: Yes (WEARS RX GLASSES) Hx Macular Degeneration: Yes - RENAL Hx Chronic Kidney Disease: No - ENDOCRINE/METABOLIC Hx Endocrine Disorders: No - HEMATOLOGICAL/ONCOLOGICAL Hx Blood Disorders: No - INTEGUMENTARY Hx Dermatological Problems: No - MUSCULOSKELETAL/RHEUMATOLOGICAL Hx Arthritis: Yes (knees) - GASTROINTESTINAL Hx Gastrointestinal Disorders: Yes (COLOSTOMY WITH REVERSAL) - GENITOURINARY/GYNECOLOGICAL Hx Reproductive Disorders: No - PSYCHIATRIC Hx Psychophysiologic Disorder: Yes (SMOKED CIGARETTES P A WEEK. QUIT) Hx Anxiety: Yes Hx Bipolar Disorder: No Hx Depression: No Hx Emotional Abuse: No Hx Hallucinations: No Hx Panic Symptoms: No Hx Post Traumatic Stress Disorder: No Hx Psychosis: No Hx Physical Abuse: No Hx Schizophrenia: No Hx Sexual Abuse: No Hx Substance Use: No - SURGICAL HISTORY Hx Cholecystectomy: Yes Other/Comment: right lumpectomy, colostomy with reversal. - ANESTHESIA Hx Anesthesia: Yes Hx Anesthesia Reactions: No Hx Malignant Hyperthermia: No Meds Allergies/Adverse Reactions: Allergies Allergy/AdvReac Type Severity Reaction Status Date / Time Sulfa (Sulfonamide Allergy NAUSEA Verified 10/23/17 22:37 Antibiotics) - Medications Medications: Current Medications Acetaminophen (Tylenol 325mg Tab) 650 mg PO Q6H PRN; Protocol PRN Reason: Fever >100.4 F Alprazolam (Xanax) 0.5 mg PO DAILY PRN; Protocol PRN Reason: Anxiety Last Admin: 10/25/17 20:58 Dose: 0.5 mg Atorvastatin Calcium (Lipitor) 80 mg PO DAILY ANA MARÍA PRN Reason: Protocol Last Admin: 10/26/17 10:22 Dose: 80 mg Bacitracin (Bacitracin) 1 ea TOP BID PRN PRN Reason: Other Cefpodoxime Proxetil (Vantin) 200 mg PO Q12 ANA MARÍA Last Admin: 10/26/17 10:24 Dose: 200 mg Hydrochlorothiazide (Hydrodiuril) 25 mg PO DAILY ANA MARÍA PRN Reason: Protocol Last Admin: 10/26/17 10:22 Dose: 25 mg Lisinopril (Zestril) 10 mg PO DAILY ANA MARÍA PRN Reason: Protocol Last Admin: 10/26/17 10:24 Dose: 10 mg Mupirocin (Bactroban Ointment) 0 gm TOP DAILY ANA MARÍA PRN Reason: Protocol Last Admin: 10/26/17 10:21 Dose: 1 applic Tramadol HCl (Ultram) 50 mg PO QID PRN; Protocol PRN Reason: Pain, Mild (1-3) Physical Exam - Constitutional Appears: Well, Non-toxic, Toxic - Extremities Exam Additional comments: VASC: DP and PT pulses weakly palpable 1/4 b/l. CFT <3 seconds to all digits x10. Temperature gradient cool to cool. decreased edema bl, No increase in warmth noted to ulcers b/l. Varicosities noted. NEURO: Gross sensation intact bilaterally. DERM: Ulcerations noted to anterior aspect of leg bilateral; both wounds appear granular with no active drainage, absent purulence/fluctuance/malodor/calor. Wound edges intact. ORTHO: slight tenderness to palpation noted to left leg ulceration. - Neurological Exam Neurological exam: Alert, Oriented x3 - Psychiatric Exam Psychiatric exam: Normal Affect, Normal Mood Results - Vital Signs Recent Vital Signs: Last Vital Signs Temp 98 F 10/25/17 16:00 Pulse 62 10/26/17 10:24 Resp 16 10/25/17 16:00 BP 115/60 10/26/17 10:24 Pulse Ox 88 L 10/25/17 16:00 Assessment & Plan - Assessment and Plan (Free Text) Assessment: 82 year old female with 1) non-healing leg ulcerations b/l secondary to trauma Plan: Patient seen and evaluated Plan discussed with attending Dr. Pena Chart, labs vitals reviewed: afebrile, no leukocytosis (WBC=6.1 on 10/21/17) Left leg wound cx: + enterobacter heavy growth (10/20/17) B/L leg ulcerations cleansed with normal saline, dressed with bactroban and optifoam Pain mgmt per medicine c/w abx per ID Stable per podiatry Podiatry will continue to follow while in house
[2017-10-26] MEDS: Nystatin 100,000 Units/gm Topical Pow(15 gm) TOP SCH ×2 (15:00→21:58)
--- NOTE | 2017-10-26 22:23 | PN ---
DATE: SUBJECTIVE: The patient is an 82-year-old, seen and examined, doing well, sitting in chair, still feel anxious. Leg dressing was just done. PHYSICAL EXAMINATION VITAL SIGNS: She is afebrile. Pulse 60, respirations 22 and blood pressure 150/60. LUNGS: Bilaterally good airflow. No rhonchi or crackle. HEART: S1 and S2 audible. No murmur. ABDOMEN: Soft and nontender. No rebound. No guarding. NEUROLOGIC: The patient is awake, alert, oriented, communicative, ambulatory. ASSESSMENT: 1. Bilateral españa, stage II ulcers with surrounding cellulitis, improving. 2. Anxiety disorder. 3. Hypertension. 4. Hyperlipidemia. 5. Deconditioning. 6. Difficulty walking. PLAN: We will continue patient on Vantin. Continue local wound care and we will also continue to monitor her blood pressure. Encourage physical therapy. Radha Hendrickson MD
[2017-10-27] MEDS: Nystatin 100,000 Units/gm Topical Pow(15 gm) TOP SCH ×3 (06:11→21:40)
[2017-10-27] MEDS: Cefpodoxime (Vantin) 200 mg Tab PO SCH ×2 (10:08→21:40)
--- NOTE | 2017-10-27 16:22 | CP.PCM.PN ---
Subjective - Date & Time of Evaluation Date of Evaluation: 10/27/17 Time of Evaluation: 16:19 - Subjective Subjective: Podiatry Progress Note- Dr. Pena 82 y.o female seen in [facility] for bilaterally leg wounds secondary to trauma. Patient is seen resting comfortably in bed, in NAD, and AA0x3. Patient denies acute overnight events. Patient reports same tender pain to the lower extremity. Patient reports that she is vomiting today. She denies nausea, fever , shortness of breath, chest pain and chills. She has no other pedal complaints at this time. Objective - Vital Signs/Intake and Output Vital Signs (last 24 hours): Temp Pulse Resp BP Pulse Ox 98 F 62 14 146/71 95 10/27/17 11:26 10/27/17 11:26 10/27/17 11:26 10/27/17 11:26 10/27/17 11:26 Intake and Output: 10/27/17 10/27/17 06:59 18:59 Intake Total 420 Balance 420 - Medications Medications: Current Medications Acetaminophen (Tylenol 325mg Tab) 650 mg PO Q6H PRN; Protocol PRN Reason: Fever >100.4 F Alprazolam (Xanax) 0.5 mg PO DAILY PRN; Protocol PRN Reason: Anxiety Last Admin: 10/25/17 20:58 Dose: 0.5 mg Atorvastatin Calcium (Lipitor) 80 mg PO DAILY ANA MARÍA PRN Reason: Protocol Last Admin: 10/27/17 10:08 Dose: 80 mg Bacitracin (Bacitracin) 1 ea TOP BID PRN PRN Reason: Other Cefpodoxime Proxetil (Vantin) 200 mg PO Q12 ANA MARÍA Last Admin: 10/27/17 10:08 Dose: 200 mg Hydrochlorothiazide (Hydrodiuril) 25 mg PO DAILY ANA MARÍA PRN Reason: Protocol Last Admin: 10/27/17 10:19 Dose: 25 mg Lisinopril (Zestril) 10 mg PO DAILY ANA MARÍA PRN Reason: Protocol Last Admin: 10/27/17 10:19 Dose: 10 mg Mupirocin (Bactroban Ointment) 0 gm TOP DAILY ANA MARÍA PRN Reason: Protocol Last Admin: 10/27/17 10:08 Dose: 1 applic Nystatin (Nystop Topical Powder) 0 gm TOP Q8 ANA MARÍA Last Admin: 10/27/17 13:45 Dose: 1 appl Ondansetron HCl (Zofran Odt) 4 mg PO Q8H PRN PRN Reason: Nausea/Vomiting Last Admin: 10/27/17 15:20 Dose: 4 mg Tramadol HCl (Ultram) 50 mg PO QID PRN; Protocol PRN Reason: Pain, Mild (1-3) Last Admin: 10/26/17 22:11 Dose: 50 mg - Constitutional Appears: Non-toxic, No Acute Distress - Extremities Exam Additional comments: VASC: DP and PT pulses weakly palpable 1/4 b/l. CFT <3 seconds to all digits x10. Temperature gradient cool to cool. decreased edema bl, No increase in warmth noted to ulcers b/l. Varicosities noted. NEURO: Gross sensation intact bilaterally. DERM: Ulcerations noted to anterior aspect of leg bilateral; both wounds appear granular with no active drainage, absent purulence/fluctuance/malodor/calor. Wound edges intact. ORTHO: slight tenderness to palpation noted to left leg ulceration. - Neurological Exam Neurological Exam: Alert, Awake, Oriented x3 - Psychiatric Exam Psychiatric exam: Normal Affect, Normal Mood Assessment and Plan - Assessment and Plan (Free Text) Assessment: 82 year old female with 1) non-healing leg ulcerations b/l secondary to trauma Plan: Patient seen and evaluated Plan discussed with attending Dr. Pena Chart, labs vitals reviewed: afebrile, no leukocytosis (WBC=6.1 on 10/21/17) Left leg wound cx: + enterobacter heavy growth (10/20/17) B/L leg ulcerations cleansed with normal saline, dressed with maxosorb and optifoam Pain mgmt per medicine c/w abx per ID Stable per podiatry Podiatry will continue to follow while in house
--- NOTE | 2017-10-27 22:03 | PN ---
DATE: SUBJECTIVE: The patient is an 82-year-old, seen and examined, very anxious, wants to go home. The patient is ambulating, but does desaturate on walking up to 87-90% and she is upset about that. PHYSICAL EXAMINATION: VITAL SIGNS: She is afebrile. Pulse 62, respirations 14 and blood pressure 146/71. LUNGS: Bilateral fair airflow. No rhonchi or crackle. HEART: S1 and S2 audible. ABDOMEN: Soft. NEUROLOGIC: Bilateral legs, no edema. LABORATORY EXAMINATION: There is no new lab available today. ASSESSMENT: 1. Bilateral leg cellulitis. 2. Hypertension. 3. Anxiety disorder. 4. Failed outpatient treatment. 5. Hyperlipidemia. 6. Exertional dyspnea and hypoxia. PLAN: I will order for senior trial attorney to evaluate if she needs oxygen upon discharge. I will order for CBC and CMP for morning. Radha Hendrickson MD
[2017-10-28 05:49] VITALS: RESP 20
[2017-10-28] MEDS: Nystatin 100,000 Units/gm Topical Pow(15 gm) TOP SCH ×3 (05:55→21:27)
[2017-10-28 07:09] LABS: BASO # 0.07 K/mm3 (0.0-2.0); BASO % 0.9 % (0.0-3.0); EOS # 0.2 (0.0-0.7); EOS % 2.7 % (1.5-5.0); GRAN # 3.59 (1.4-6.5); GRAN % 44.4 % (50.0-68.0); HEMATOCRIT 40.3 % (36.0-48.0); LYMPH # 3.2 (1.2-3.4); LYMPH % 39.6 % (22.0-35.0); MEAN CELL VOLUME 88.2 fl (80.0-105.0); MEAN CORPUSCULAR HEMOGLOBIN 28.7 pg (25.0-35.0); MEAN CORPUSCULAR HGB CONC 32.5 g/dl (31.0-37.0); MEAN PLATELET VOLUME 11.4 fl (7.0-11.0); MONO % 12.4 % (1.0-6.0); RED CELL DISTRIBUTION WIDTH 14.4 % (11.5-14.5); WHITE BLOOD COUNT 8.1 10^3/ul (4.5-11.0)
--- NOTE | 2017-10-28 07:31 | CON ---
DATE: 10/28/2017 PULMONARY CONSULTATION REASON FOR CONSULTATION: Chronic obstructive pulmonary disease. REFERRING PHYSICIAN: Dr. Hendrickson. HISTORY OF PRESENT ILLNESS: The patient is an 82-year-old female, with past medical history significant for chronic obstructive pulmonary disease, positive extensive smoking history (over 60 years), hypertension, hyperlipidemia, anxiety, who initially presented to [facility] - on 10/19/2017 - with bilateral anterior leg ulcerations. Apparently, the patient did have a recent fall, and tore the skin on both of her españa areas. Despite antibiotic therapy, the ulcerations did not improve, and the patient was admitted for additional evaluation and treatment. While on the acute care side, the patient did very well clinically. Her legs improved, and she felt much better. She now resides on the Transitional Unit. I did discuss the case with the nurse at length. Apparently, with exercise, the patient does experience oxygen desaturation. I am thus asked to evaluate on this case for additional management. The patient is not short of breath at rest. She does have occasional dyspnea on exertion. She denies cough or sputum production. She denies chest pain, coughing up of blood, or chest pain - made worse with deep respirations. There is no history of temperatures, chills or infectious exposure. There is no history of night sweats, weight loss or appetite change prior to the above events. No history of calf pains. No history of syncope or diaphoresis. No history of recent travel. REVIEW OF SYSTEMS: No history of nausea, vomiting or diarrhea. No acute urinary symptoms. No new neurologic complaints. Rest of the review of systems is negative. ALLERGIES: SULFA. SOCIAL HISTORY: Positive for extensive tobacco usage, no alcohol. FAMILY HISTORY: No inheritable diseases. HOME MEDICATIONS: Include Ultram, omega-3 fatty acid, Centrum, Boniva, vitamin D, Lipitor, Xanax. PHYSICAL EXAMINATION: GENERAL: The patient appears comfortable at rest. She is not short of breath. VITAL SIGNS: Temperature is 98.5, pulse 58, respirations 18/20, blood pressure 113/47. Oxygen saturation on nasal cannula is between 90-95%. Oxygen saturation with exercise on room air - 85%. HEENT: Normocephalic, atraumatic. NECK: No JVD. CARDIOVASCULAR: Systolic ejection murmur at the lower left sternal border. No S3 gallop. LUNGS: Decreased breath sounds at the bases. No rhonchi. Mild wheezing bilaterally. EXTREMITIES: The anterior aspects of her lower extremities are bandaged. There is no cyanosis or clubbing. The calves are nontender to palpation. GI: Abdomen is soft, nontender and nondistended. Bowel sounds are positive. SKIN: No acute rash. NEUROLOGIC: Exam limited at the present time. PERTINENT LABORATORY DATA: The patient did have a rib series with chest x-ray done on 09/19/2017. The lungs are clear. There were no fractures noted. IMPRESSION: 1. Probable advanced chronic obstructive pulmonary disease. 2. Oxygen desaturation with exercise. 3. Mild bronchospasm. 4. Lower leg cellulitis, status post fall. PLAN: The patient presented to [facility] - originally on 10/19/2017 - with nonhealing ulcerations on both of her anterior lower legs. Again, while on the acute care side, the patient did very well with significant improvement in her symptoms. I did question the patient at length. She offers no significant pulmonary symptoms. I have also spoken with the nurse at length. Apparently, with exercise, the patient does exhibit oxygen desaturation on room air. She is being set up for home oxygen. On physical exam, there is mild bronchospasm noted. The patient is currently on no pulmonary medications. She does state that she takes Spiriva at home. I will restart the Spiriva this morning. In addition, given the above bronchospasm, I will start the patient on Brovana and Pulmicort while in the hospital. The patient was on Advair previously - but stopped it on her own. I did discuss medication compliance with her at length. The patient should be on some form of long-acting beta agonist and inhaled steroid. Again, she has a significant smoking history - over 60 years. The patient does agree fully with the above plan. I will discuss the above with physical therapy this morning. I will also discuss the above with the attending physician this morning. Thank you very much for this pulmonary consultation. Dc Sin MD NORI
[2017-10-28] MEDS: Arformoterol 15 mcg/2 ml Inh Sol IH SCH ×2 (07:41→20:37)
[2017-10-28] MEDS: Budesonide 0.5 mg/2 ml Inhal Susp UD IH SCH ×2 (07:42→20:37)
[2017-10-28 07:44] LABS: ALB/GLOB RATIO 1.4 (1.1-1.8); BILIRUBIN,TOTAL 0.5 mg/dL (0.2-1.3); CALCIUM 9.2 mg/dL (8.4-10.5); POTASSIUM 3.7 mmol/L (3.6-5.0)
[2017-10-28] MEDS: Cefpodoxime (Vantin) 200 mg Tab PO SCH ×2 (09:22→21:27)
[2017-10-28] MEDS: Tiotropium 18 mcg Cap For Inhalation IH SCH (10:54)
--- NOTE | 2017-10-28 16:44 | CP.PCM.PN ---
<Rakesh Solorzano - Last Filed: 10/28/17 16:41> Subjective - Date & Time of Evaluation Date of Evaluation: 10/28/17 Time of Evaluation: 09:50 - Subjective Subjective: Podiatry Progress Note- Dr. Richardson 82 y.o female seen in [facility] for bilaterally leg wounds secondary to trauma. Patient is seen resting comfortably in bed, in NAD, and AA0x3. Patient denies acute overnight events. Patient reports same tender pain to the lower extremity. She denies nausea, fever, shortness of breath, chest pain and chills. She has no other pedal complaints at this time. Objective - Vital Signs/Intake and Output Vital Signs (last 24 hours): Temp Pulse Resp BP Pulse Ox 98.5 F 65 20 119/50 L 90 L 10/28/17 05:48 10/28/17 09:50 10/28/17 05:48 10/28/17 09:50 10/28/17 05:48 Intake and Output: 10/28/17 10/28/17 06:59 18:59 Intake Total 420 Balance 420 - Medications Medications: Current Medications Acetaminophen (Tylenol 325mg Tab) 650 mg PO Q6H PRN; Protocol PRN Reason: Fever >100.4 F Alprazolam (Xanax) 0.5 mg PO DAILY PRN; Protocol PRN Reason: Anxiety Last Admin: 10/25/17 20:58 Dose: 0.5 mg Arformoterol Tartrate (Brovana) 15 mcg [facility] [id number] [facility] Last Admin: 10/28/17 07:41 Dose: 15 mcg Atorvastatin Calcium (Lipitor) 80 mg PO DAILY ANA MARÍA PRN Reason: Protocol Last Admin: 10/28/17 09:21 Dose: 80 mg Bacitracin (Bacitracin) 1 ea TOP BID PRN PRN Reason: Other Budesonide (Pulmicort Respules) 0.5 mg [facility] [id number] [facility] Last Admin: 10/28/17 07:42 Dose: 0.5 mg Cefpodoxime Proxetil (Vantin) 200 mg PO Q12 [facility] Last Admin: 10/28/17 09:22 Dose: 200 mg Hydrochlorothiazide (Hydrodiuril) 25 mg PO DAILY [facility] PRN Reason: Protocol Last Admin: 10/28/17 09:49 Dose: Not Given Lisinopril (Zestril) 10 mg PO DAILY ANA MARÍA PRN Reason: Protocol Last Admin: 10/28/17 09:50 Dose: Not Given Mupirocin (Bactroban Ointment) 0 gm TOP DAILY ANA MARÍA PRN Reason: Protocol Last Admin: 10/28/17 09:21 Dose: 1 applic Nystatin (Nystop Topical Powder) 0 gm TOP Q8 ANA MARÍA Last Admin: 10/28/17 15:10 Dose: 1 appl Ondansetron HCl (Zofran Odt) 4 mg PO Q8H PRN PRN Reason: Nausea/Vomiting Last Admin: 10/27/17 15:20 Dose: 4 mg Tiotropium Galt (Spiriva) 18 mcg IH DAILY ANA MARÍA Last Admin: 10/28/17 10:54 Dose: 18 mcg Tramadol HCl (Ultram) 50 mg PO QID PRN; Protocol PRN Reason: Pain, Mild (1-3) Last Admin: 10/26/17 22:11 Dose: 50 mg - Labs Labs: 10/28/17 06:30 10/28/17 06:30 - Constitutional Appears: Well, Non-toxic, No Acute Distress - Extremities Exam Additional comments: VASC: DP and PT pulses weakly palpable 1/4 b/l. CFT <3 seconds to all digits x10. Temperature gradient cool to cool. decreased edema bl, No increase in warmth noted to ulcers b/l. Varicosities noted. NEURO: Gross sensation intact bilaterally. DERM: Ulcerations noted to anterior aspect of leg bilateral; Wound base is 100% grandular with scabs noted to the peripheral wounds; both wounds with no active drainage noted, absent purulence/fluctuance/malodor/calor. Wound edges intact. No tunneling, no undermining. Skin surrounding ulceration is thin and fragile ORTHO: slight tenderness to palpation noted to left leg ulceration. - Neurological Exam Neurological Exam: Alert, Awake, Oriented x3 - Psychiatric Exam Psychiatric exam: Normal Affect, Normal Mood Assessment and Plan - Assessment and Plan (Free Text) Assessment: 82 year old female with 1) non-healing leg ulcerations b/l secondary to trauma Plan: Patient seen and evaluated Plan discussed with attending Dr. Richardson Chart, labs vitals reviewed: afebrile, no leukocytosis (WBC=8.1) Left leg wound cx: + enterobacter heavy growth (10/20/17) B/L leg ulcerations cleansed with normal saline, dressed with maxosorb and optifoam Pain mgmt per medicine c/w abx per ID Stable per podiatry Podiatry will continue to follow while in house <Ronald Richardson - Last Filed: 10/29/17 07:27> Objective - Vital Signs/Intake and Output Vital Signs (last 24 hours): Temp Pulse Resp BP Pulse Ox 97.9 F 58 L 20 97/52 L 95 10/29/17 06:00 10/29/17 06:00 10/29/17 06:00 10/29/17 06:00 10/29/17 06:00 Intake and Output: 10/29/17 10/29/17 06:59 18:59 Intake Total 420 Balance 420 - Medications Medications: Current Medications Acetaminophen (Tylenol 325mg Tab) 650 mg PO Q6H PRN; Protocol PRN Reason: Fever >100.4 F Alprazolam (Xanax) 0.5 mg PO DAILY PRN; Protocol PRN Reason: Anxiety Last Admin: 10/25/17 20:58 Dose: 0.5 mg Arformoterol Tartrate (Brovana) 15 mcg [facility] [id number] [facility] Last Admin: 10/28/17 20:37 Dose: 15 mcg Atorvastatin Calcium (Lipitor) 80 mg PO DAILY [facility] PRN Reason: Protocol Last Admin: 10/28/17 09:21 Dose: 80 mg Bacitracin (Bacitracin) 1 ea TOP BID PRN PRN Reason: Other Budesonide (Pulmicort Respules) 0.5 mg [facility] [id number] [facility] Last Admin: 10/28/17 20:37 Dose: 0.5 mg Cefpodoxime Proxetil (Vantin) 200 mg PO Q12 ANA MARÍA Last Admin: 10/28/17 21:27 Dose: 200 mg Hydrochlorothiazide (Hydrodiuril) 25 mg PO DAILY ANA MARÍA PRN Reason: Protocol Last Admin: 10/28/17 09:49 Dose: Not Given Lisinopril (Zestril) 10 mg PO DAILY ANA MARÍA PRN Reason: Protocol Last Admin: 10/28/17 09:50 Dose: Not Given Mupirocin (Bactroban Ointment) 0 gm TOP DAILY ANA MARÍA PRN Reason: Protocol Last Admin: 10/28/17 09:21 Dose: 1 applic Nystatin (Nystop Topical Powder) 0 gm TOP Q8 ANA MARÍA Last Admin: 10/29/17 05:26 Dose: Not Given Ondansetron HCl (Zofran Odt) 4 mg PO Q8H PRN PRN Reason: Nausea/Vomiting Last Admin: 10/27/17 15:20 Dose: 4 mg Tiotropium Galt (Spiriva) 18 mcg IH DAILY ANA MARÍA Last Admin: 10/28/17 10:54 Dose: 18 mcg Tramadol HCl (Ultram) 50 mg PO QID PRN; Protocol PRN Reason: Pain, Mild (1-3) Last Admin: 10/26/17 22:11 Dose: 50 mg - Labs Labs: 10/28/17 06:30 10/28/17 06:30 Attending/Attestation - Attestation I have personally seen and examined this patient.: Yes I have fully participated in the care of the patient.: Yes I have reviewed all pertinent clinical information, including history, physical exam and plan: Yes
--- NOTE | 2017-10-28 21:12 | PN ---
DATE: SUBJECTIVE: The patient is 82-year-old, seen and examined, very anxious. No nausea, vomiting or diarrhea. However, it was noted that she desaturated upon walking and it was recommended to give her oxygen for ambulation, but the patient is not happy about that. PHYSICAL EXAMINATION VITAL SIGNS: She is afebrile, pulse 65, respirations 20, blood pressure 119/50. LUNGS: Bilateral good airflow. No rhonchi or crackle. HEART: S1, S2 audible. ABDOMEN: Soft, nontender. No rebound. No guarding. NEUROLOGIC: The patient is awake, alert, oriented, able to communicate. LABORATORY DATA: WBC 8.1, hemoglobin 13, hematocrit 40, platelets 234. Chemistry; sodium 134, potassium 3.7, chloride 94, CO2 30, BUN 52, creatinine 1.6, blood sugar of 97. ASSESSMENT: 1. Bilateral healing españa ulcer. 2. Renal insufficiency. 3. Hypertension. 4. Exertional hypoxia and dyspnea. PLAN: The patient is going to be discharge tomorrow. She will be discharged on p.o. Vantin. She will get wound care by visiting nurses and we will arrange for home oxygen. Radha Hendrickson MD
[2017-10-29] MEDS: Nystatin 100,000 Units/gm Topical Pow(15 gm) TOP SCH (05:26)
[2017-10-29] MEDS: Arformoterol 15 mcg/2 ml Inh Sol IH SCH (07:49)
[2017-10-29] MEDS: Budesonide 0.5 mg/2 ml Inhal Susp UD IH SCH (07:49)
--- NOTE | 2017-10-29 10:17 | CP.PCM.PN ---
Subjective - Date & Time of Evaluation Date of Evaluation: 10/29/17 Time of Evaluation: 10:13 - Subjective Subjective: Podiatry Progress Note - Dr. Pena/Dylan 82 y.o female seen in [facility] for bilateral leg wounds secondary to trauma. Patient hemodynamicaly stable and NAD. No acute events overnight. No complaints to bilateral leg wounds today; states visiting nurses will be coming to her home for dressing changes. Patient states she is being discharged today. Denies N/V/F/D/C/SOB. Objective - Vital Signs/Intake and Output Vital Signs (last 24 hours): Temp Pulse Resp BP Pulse Ox 97.9 F 58 L 20 97/52 L 95 10/29/17 06:00 10/29/17 06:00 10/29/17 06:00 10/29/17 06:00 10/29/17 06:00 Intake and Output: 10/29/17 10/29/17 06:59 18:59 Intake Total 420 Balance 420 - Medications Medications: Current Medications Acetaminophen (Tylenol 325mg Tab) 650 mg PO Q6H PRN; Protocol PRN Reason: Fever >100.4 F Alprazolam (Xanax) 0.5 mg PO DAILY PRN; Protocol PRN Reason: Anxiety Last Admin: 10/25/17 20:58 Dose: 0.5 mg Arformoterol Tartrate (Brovana) 15 mcg IH [id number] [facility] Last Admin: 10/29/17 07:49 Dose: 15 mcg Atorvastatin Calcium (Lipitor) 80 mg PO DAILY ANA MARÍA PRN Reason: Protocol Last Admin: 10/28/17 09:21 Dose: 80 mg Bacitracin (Bacitracin) 1 ea TOP BID PRN PRN Reason: Other Budesonide (Pulmicort Respules) 0.5 mg IH [id number] [facility] Last Admin: 10/29/17 07:49 Dose: 0.5 mg Cefpodoxime Proxetil (Vantin) 200 mg PO Q12 [facility] Last Admin: 10/28/17 21:27 Dose: 200 mg Hydrochlorothiazide (Hydrodiuril) 25 mg PO DAILY [facility] PRN Reason: Protocol Last Admin: 10/28/17 09:49 Dose: Not Given Lisinopril (Zestril) 10 mg PO DAILY ANA MARÍA PRN Reason: Protocol Last Admin: 10/28/17 09:50 Dose: Not Given Mupirocin (Bactroban Ointment) 0 gm TOP DAILY ANA MARÍA PRN Reason: Protocol Last Admin: 10/28/17 09:21 Dose: 1 applic Nystatin (Nystop Topical Powder) 0 gm TOP Q8 ANA MARÍA Last Admin: 10/29/17 05:26 Dose: Not Given Ondansetron HCl (Zofran Odt) 4 mg PO Q8H PRN PRN Reason: Nausea/Vomiting Last Admin: 10/27/17 15:20 Dose: 4 mg Tiotropium [place] (Spiriva) 18 mcg IH DAILY [facility] Last Admin: 10/28/17 10:54 Dose: 18 mcg Tramadol HCl (Ultram) 50 mg PO QID PRN; Protocol PRN Reason: Pain, Mild (1-3) Last Admin: 10/26/17 22:11 Dose: 50 mg - Labs Labs: 10/28/17 06:30 10/28/17 06:30 - Constitutional Appears: Well, Non-toxic, No Acute Distress - Extremities Exam Additional comments: VASC: DP and PT pulses weakly palpable 1/4 b/l. CFT <3 seconds to all digits x10. Temperature gradient cool to cool. decreased edema bl, No increase in warmth noted to ulcers b/l. Varicosities noted. NEURO: Gross sensation intact bilaterally. DERM: Ulcerations noted to anterior aspect of leg bilateral; Wound base is 100% grandular with scabs noted to the peripheral wounds; both wounds with no active drainage noted, absent purulence/fluctuance/malodor/calor. Wound edges intact. No tunneling, no undermining. Skin surrounding ulceration is thin and fragile ORTHO: No tenderness to palpation noted to left leg ulceration. - Neurological Exam Neurological Exam: Alert, Awake, Normal Gait, Oriented x3 - Psychiatric Exam Psychiatric exam: Normal Affect, Normal Mood Assessment and Plan - Assessment and Plan (Free Text) Assessment: 82 year old female with non-healing leg ulcerations b/l secondary to trauma Plan: Patient seen and evaluated in TCU Plan discussed with attending Dr. Richardson afebrile Left leg wound cx: + enterobacter heavy growth (10/20/17) B/L leg ulcerations cleansed with normal saline, dressed with maxosorb and optifoam Pain mgmt per medicine c/w abx per ID Visiting nurses will change dressing to bilateral legs Advised patient to follow up in wound care clinic within 1 week of discharge Stable for discharge from podiatry standpoint
[2017-10-29] MEDS: Tiotropium 18 mcg Cap For Inhalation IH SCH (10:50)
[2017-10-29] MEDS: Cefpodoxime (Vantin) 200 mg Tab PO SCH (10:51)
[2017-10-29 10:58] VITALS: BP 90/57; PULSE 68; TEMP 97.6; O2SAT 90
--- NOTE | 2017-10-30 05:30 | DS ---
HISTORY OF PRESENT ILLNESS: The patient is an 82-year-old, seen and examined, lying in bed, seems to be comfortable. No nausea. No vomiting. No diarrhea. PHYSICAL EXAMINATION: VITAL SIGNS: She is afebrile, pulse 60, respirations 20, blood pressure 90/57. LUNGS: Bilateral fair airflow. No rhonchi or crackle. HEART: S1, S2 audible. No murmur. ABDOMEN: Soft, nontender. No rebound. No guarding. NEUROLOGIC: The patient is awake, alert, oriented, able to communicate, ambulatory. EXTREMITIES: Bilateral shins are in dressing. ASSESSMENT: 1. Bilateral [place] cellulitis and ulcers, failed outpatient treatment. 2. Exertional dyspnea and hypoxia. 3. Hypertension. 4. Anxiety disorder. PLAN: The patient is being discharged home on Vantin 100 mg twice a day for 5 days and 200 mg twice a day for 5 days. [facility] and also she will be followed by visiting nurses. She will resume her medications including Toradol, multivitamin, Boniva, calcium with vitamin D and atorvastatin. Radha Hendrickson MD
== END 2017-10-29 15:35 | disposition home or self-care (01) | DRG 593 ==
LOC: TRCU 14:40
PROVIDERS: ADMIT Internal Medicine; ATTEND Internal Medicine
PROC: F07Z9FZ Gait Training/Functional Ambulation Treatment using Assistive, Adaptive, Supportive or Protective Equipment (ICD-10-PCS; principal; 2017-10-24)
PROC: F07M6ZZ Therapeutic Exercise Treatment of Musculoskeletal System - Whole Body (ICD-10-PCS; 2017-10-24)
PROC: F08Z1ZZ Dressing Techniques Treatment (ICD-10-PCS; 2017-10-24)
PROC: F08Z2ZZ Grooming/Personal Hygiene Treatment (ICD-10-PCS; 2017-10-24)
PROC: F08Z0ZZ Bathing/Showering Techniques Treatment (ICD-10-PCS; 2017-10-24)
DX: L97.819 Non-pressure chronic ulcer of other part of right lower leg with unspecified severity (principal); L03.116 Cellulitis of left lower limb; F03.90 Unspecified dementia, unspecified severity, without behavioral disturbance, psychotic disturbance, mood disturbance, and anxiety; L03.115 Cellulitis of right lower limb; J44.9 Chronic obstructive pulmonary disease, unspecified; L97.829 Non-pressure chronic ulcer of other part of left lower leg with unspecified severity; F41.9 Anxiety disorder, unspecified; I10 Essential (primary) hypertension; R09.02 Hypoxemia; E78.5 Hyperlipidemia, unspecified; H35.30 Unspecified macular degeneration; J98.01 Acute bronchospasm; M17.0 Bilateral primary osteoarthritis of knee; N28.9 Disorder of kidney and ureter, unspecified; Z79.899 Other long term (current) drug therapy; Z87.891 Personal history of nicotine dependence; Z90.49 Acquired absence of other specified parts of digestive tract; Z93.3 Colostomy status; Z88.2 Allergy status to sulfonamides; Z91.81 History of falling